=== PATIENT | female | born 1955 | race Caucasian/White ===

== ENCOUNTER 2017-04-02 11:27 | Emergency (ER) | payer MEDICARE, OTHER ==
--- NOTE | ~2017-04-02 | CR230 ---
[facility] A Service of [facility] RADIOLOGY TEXT RESULTS PATIENT: ELIZA ISBELL LOCATION: [facility] : 53 UNIT #: [id number] AGE: [address]: Flori Espinal MD SEX: F ORDER DR: [id number] [facility]. [place], [place] [address] [id number] E MR#: [id number] Acc #: [id number] NAME: ELIZA ISBELL : 1955 SEX: F STUDY DATE/TIME: 04/02/2017 13:34 UNIT: [facility] ROOM: STUDY DESCRIPTION: CR Shoulder Min 2 View Rt Attending Physician: Flori Espinal M.D. Ordering Physician: Flori Espinal M.D. Primary Care Physician: Judd Ruiz M.D. MEDICAL IMAGING REPORT This report is preliminary unless electronic signature is present EXAM Right shoulder 3 views 04/02/17 at 13:34 hours HISTORY A 61-year-old woman complaining of 3-4 day history of right shoulder pain after working in her garden. COMPARISON None. FINDINGS AP views in internal-external rotation and a scapula Y-view were performed. There is no fracture or dislocation. There is spurring at the acromioclavicular joint and the glenohumeral joint. The humeral head is high-riding suggesting chronic rotator cuff tear. IMPRESSION 1. There is no acute fracture or dislocation. 2. There is moderate spurring at the glenohumeral joint and acromioclavicular joint. 3. The humeral head is high-riding abutting the undersurface of the acromion consistent with a chronic rotator cuff tear. Dictated by... Eva Davila M.D. THIS IS AN ELECTRONICALLY VERIFIED REPORT Eva Davila M.D. at 04/02/2017 9:03 PM Juli TD: 04/02/2017 20:40 [facility] A Service of [facility] RADIOLOGY TEXT RESULTS PATIENT: ELIZA ISBELL [id number] 53 UNIT #: [id number] AGE: [address]: Flori Espinal MD SEX: F ORDER DR: JOB #: [id number] MEDICAL IMAGING REPORT Page 1 of 1 COPY
--- NOTE | ~2017-04-02 | CR63 ---
[facility] A Service of [facility] RADIOLOGY TEXT RESULTS PATIENT: ELIZA ISBELL LOCATION: [facility] : 53 UNIT #: [id number] AGE: [address]: Flori Espinal MD SEX: F ORDER DR: [id number] [facility] [address] [place], [place] [address] [id number] E MR#: [id number] Acc #: [id number] NAME: ELIZA ISBELL : 1955 SEX: F STUDY DATE/TIME: 04/02/2017 13:34 UNIT: [facility] ROOM: STUDY DESCRIPTION: CR Chest 2 View Attending Physician: Flori Espinal M.D. Ordering Physician: Flori Espinal M.D. Primary Care Physician: Judd Ruiz M.D. MEDICAL IMAGING REPORT This report is preliminary unless electronic signature is present EXAM Chest 2 views, 04/02/2017 1334 hours HISTORY 61-year-old with complaint of chest and shoulder pain for 3-4 days, after working in her garden. COMPARISON 08/26/2016 FINDINGS Upright PA and lateral views of the chest demonstrate normal cardiac, mediastinal and hilar contours. Lungs are hyperinflated with emphysematous change. There are calcified granulomata. There is no acute pulmonary density or pleural effusion. IMPRESSION Stable emphysematous and benign calcified granulomatous changes. No acute cardiopulmonary findings. Dictated by... Eva Davila M.D. THIS IS AN ELECTRONICALLY VERIFIED REPORT Eva Davila M.D. at 04/02/2017 9:03 PM ANTONY/saray TD: 04/02/2017 20:47 JOB #: [id number] MEDICAL IMAGING REPORT Page 1 of 1 COPY
[~2017-04-02 11:27] MED LIST: CETIRIZINE HCL10 MG PO; FLONASE 0.05% N16 G1; LIPITOR PO; MULTIPLE VITAMI1 T11 PO
== END 2017-04-02 14:11 | disposition home or self-care (01) ==
LOC: CED 11:27
DX: M75.101 Unspecified rotator cuff tear or rupture of right shoulder, not specified as traumatic (principal); J45.909 Unspecified asthma, uncomplicated; Z87.891 Personal history of nicotine dependence; Z88.5 Allergy status to narcotic agent; Z98.890 Other specified postprocedural states
CPT/HCPCS: 71020; 73030; 99283